=== PATIENT | male | born 1955 | race Caucasian/White ===

== ENCOUNTER 2016-11-21 08:20 | Day surgery (SDC) | payer BC ==
[~2016-11-21] VITALS: Ht 183 cm; Wt 150.0 kg
[2016-11-21] VITALS (10 sets, daily range): BP systolic 101–128; BP diastolic 45–75; PULSE 40–85; TEMP 97.9–98.1
[~2016-11-21 08:20] MED LIST: ALDACTONE 25MG25 MG PO; ALEVE 220MG220 MG PO; AVELOX 400MG T400 MG PO; CALTRATE 600 +1 TAB PO; CARVEDILOL3.125 MG PO; COREG 25MG25 MG/TAB PO; COREG 6.256.25 MG/TA PO; COREG PO; DIGOXIN0.25 MG PO; FERROUS SU325 MG/TAB PO; FOLIC ACID PO; K-LOR CON PO; LASIX 40MG TABL40 MG PO; LISINOPRIL20 MG PO; NASACORT AQ N16.5 GM NS; PRILOSEC 20MG20 MG PO; RELAFEN 50500 MG/TAB PO; TYLENOL 325MG325 MG PO; ULTRAM50 MG PO; VITAMIN C500 MG PO; ZOCOR 20MG20 MG PO
[2016-11-21] MEDS ORDERED: ENTRESTO 24 MG1 EACH PO (08:35)
[2016-11-21] MEDS ORDERED: ALDACTONE 25MG25 M1 PO (08:36)
[2016-11-21] MEDS ORDERED: CLARITIN-D 10 M1 T24 PO (08:37)
[2016-11-21] MEDS ORDERED: LASIX 20MG TABL20 MG PO (08:37)
[2016-11-21] MEDS ORDERED: DRISTAN 12-HOUR15 ML NS (08:38)
[2016-11-21 09:06] LABS: MEAN CELL VOLUME 92 fl (80.0-100.0); MEAN CORPUSCULAR HEMOGLOBIN 30 pg (27.0-31.0); MEAN CORPUSCULAR HGB CONC 33 g/dl (33.0-37.0); MEAN PLATELET VOLUME 10.8 fl (7.4-10.4); PLATELET COUNT 177 K/mm3 (130-400); RED BLOOD COUNT 4.69 M/mm3 (4.20-5.60); REDCELL DISTRIBUTION WIDTH-CV 14.2 % (11.5-14.5)
[2016-11-21 09:15] LABS: INR 1.1 (0.8-3.0); PROTHROMBIN TIME 12.7 SECONDS (9.7-12.8)
[2016-11-21 09:20] LABS: CALCIUM 9.2 mg/dL (8.4-10.2); CREATININE, serum 0.95 mg/dL (0.66-1.25); POTASSIUM 4.8 mmol/L (3.4-5.0)
== END 2016-11-21 14:30 | disposition home or self-care (01) ==
LOC: COL.RAD 08:20
PROVIDERS: Internal Medicine Interventional Cardiology
DX: I50.22 Chronic systolic (congestive) heart failure (principal); I47.2 Ventricular tachycardia; R94.39 Abnormal result of other cardiovascular function study; I42.9 Cardiomyopathy, unspecified; E78.5 Hyperlipidemia, unspecified; I10 Essential (primary) hypertension
CPT/HCPCS: C1760; J2250; J3010; Q9967

== ENCOUNTER → 2019-01-25 | Outpatient (CLI) | payer OTHER ==
[~2019-01-25] MED LIST changes: +ALDACTONE 25MG25 M1 PO; +CLARITIN-D 10 M1 T24 PO; +DRISTAN 12-HOUR15 ML NS; +ENTRESTO 24 MG1 EACH PO; +LASIX 20MG TABL20 MG PO
[2019-01-25 17:50] LABS: HEMATOCRIT 41.1 % (42.0-52.0); HEMOGLOBIN 13.5 g/dl (13.5-18.0); MEAN CELL VOLUME 94 fl (80.0-100.0); MEAN CORPUSCULAR HEMOGLOBIN 31 pg (27.0-31.0); MEAN CORPUSCULAR HGB CONC 33 g/dl (33.0-37.0); MEAN PLATELET VOLUME 10.7 fl (7.4-10.4); PLATELET COUNT 167 K/mm3 (130-400); RED BLOOD COUNT 4.37 M/mm3 (4.20-5.60); REDCELL DISTRIBUTION WIDTH-CV 14.1 % (11.5-14.5)
[2019-01-25 17:59] LABS: CALCIUM 9.2 mg/dL (8.4-10.2); CREATININE, serum 1.01 (0.66-1.25); POTASSIUM 4.1 mmol/L (3.4-5.0)
== END ==
LOC: COL.LAB 17:25
PROVIDERS: Internal Medicine Interventional Cardiology
DX: R60.0 Localized edema (principal)